=== PATIENT | male | born 2000 | race African-American/Black ===

== ENCOUNTER 2022-05-04 18:12 | Emergency (ER) | payer OTHER, BC, SELFPAY ==
--- NOTE | ~2022-05-04 | XR_ITS ---
EXAM: XR knee LT 3V DATE: 05/04/2022 18:36 HISTORY: fall yesterday, injury,medial Lt knee pain/swelling . COMPARISON: None available. FINDINGS: Normal mineralization. Corticated osseous fragment adjacent to the lateral condyle. Curvil inear osseous fragments inferior and perhaps slightly lateral to the patella. No lytic or blastic les ion. Joint spaces and physes are maintained. No erosion or periosteal change. Soft tissues within nor mal limits. Large volume joint fluid. IMPRESSION: Osseous fragment adjacent to the lateral condyle may reflect a displaced lateral condylar fragment or avulsion at the origin of the LCL. Avulsion fracture fragment at the origin of the kathleen lar tendon. Large volume joint effusion. Reviewed, dictated and finalized at location K. IMPRESSION: Osseous fragment adjacent to the lateral condyle may reflect a disp laced lateral condylar fragment or avulsion at the origin of the LCL. Avulsion fracture fragment at the origin of the patellar tendon. Large volume joint effu hailee.
[2022-05-04 18:15] VITALS: BP 158/97; PULSE 103; RESP 17; TEMP 36.2; O2SAT 99
--- NOTE | 2022-05-04 19:31 | ED.LOWEXIN ---
HPI - Extremity Injury (Lower) General Chief Complaint: Extremity Injury, Lower Stated Complaint: left knee injury Time Seen by Provider: 05/04/22 18:38 History of Present Illness HPI Narrative: 21-year-old male presents the emergency room for evaluation of a left knee injury. Patient states that he was at work yesterday when he slipped on some water and twisted his knee and then landing on it. Patient states that he has been unable to ambulate without the use of a DME. Related Data Allergies Allergy/AdvReac Type Severity Reaction Status Date / Time No Known Allergies Allergy Verified 05/04/22 18:12 Review of Systems Review of Systems: CONSTITUTIONAL: Denies fever, chills, or sweats. EYES: Denies visual changes, redness, or discharge. ENT: Denies rhinorrhea, congestion, sore throat, or otalgia. CARDIOVASCULAR: Denies chest pain, palpitations, or edema. RESPIRATORY: Denies cough or dyspnea. GASTROINTESTINAL: Denies abdominal pain, nausea, vomiting, or diarrhea. GENITOURINARY: Denies dysuria or hematuria. SKIN: Denies rash or itching. MUSCULOSKELETAL: Reports left knee pain NEUROLOGIC: Denies headache, numbness, dizziness, or weakness. PSYCHIATRIC: Denies anxiety or depression. Exam Narrative: GENERAL: Well-appearing, well-nourished, no physical limitations, and in no acute distress. HEAD: Normocephalic, atraumatic. EYES: Conjunctivae normal, PERRLA and EOMI. CHEST: Clear to auscultation. No respiratory distress. No wheezes rales or rhonchi. No tenderness. HEART: Regular rate and rhythm. No murmur heard. Normal peripheral pulses. EXTREMITIES: Left knee: Diffuse soft tissue swelling, no patellar tracking, tenderness to the medial side. Unable to test for joint laxity or range of motion due to pain and swelling. Neurovascular is intact distally SKIN: Warm, dry, no rash. No noted wounds NEURO: No focal deficits. Alert and oriented x3. MAEW. CN's II-XI intact bilaterally, normal gait PSYCH: Cooperative. Normal mood and affect. Course Vital Signs Vital signs: Vital Signs Temperature 36.2 C L 05/04/22 18:15 Pulse Rate 103 H 05/04/22 18:15 Respiratory Rate 17 05/04/22 18:15 Blood Pressure 158/97 H 05/04/22 18:15 Pulse Oximetry 99 05/04/22 18:15 Oxygen Delivery Room Air 05/04/22 18:15 Temperature 36.2 C L 05/04/22 18:15 Pulse Rate 103 H 05/04/22 18:15 Respiratory Rate 17 05/04/22 18:15 Blood Pressure 158/97 H 05/04/22 18:15 Pulse Oximetry 99 05/04/22 18:15 Oxygen Delivery Room Air 05/04/22 18:15 Discharge Plan Discharge Clinical Impression: Closed fracture of right knee region, Acute internal derangement of knee Patient Disposition: Home, Self-Care Condition: Stable Instructions: Antibiotic Form Additional Instructions: Keep leg in knee immobilizer. May apply ice for 15minutes twice an hour to reduce swelling. Keep knee elevated. Prescriptions: New hydrocodone-acetaminophen 5-325 mg tablet 1 tablet PO Q6H PRN (Reason: pain) Qty: 15 0RF ibuprofen 800 mg tablet 800 mg PO TID Qty: 30 0RF Follow-up/Referrals: PHYSICIAN,METAL FABRICATOR APPRENTICE [Primary Care Provider] - Dougie Costello MD [Physician] - Time of Disposition: 19:39
[2022-05-04] MEDS: HYDROcodone/acetaminophen (*CRX) 5-325 MG TABLET 1 TAB PO (19:44)
== END 2022-05-04 19:55 | disposition home or self-care (01) ==
PROVIDERS: Emergency Provider Nurse Practitioner Family
DX: S82.002A Unspecified fracture of left patella, initial encounter for closed fracture (principal); W01.0XXA Fall on same level from slipping, tripping and stumbling without subsequent striking against object, initial encounter; Y99.0 Civilian activity done for income or pay; M23.91 Unspecified internal derangement of right knee
CPT/HCPCS: 73562; 99284; A9270